=== PATIENT | male | born 1995 | race Caucasian/White ===

== ENCOUNTER 2020-10-21 16:42 | Emergency (ER) | payer OTHER ==
[2020-10-21 17:16] VITALS: BP 151/78; PULSE 90; TEMP 97; BMI 20.9
[2020-10-21] MEDS ORDERED: diphenhydrAMINE HCL 25 MG CAPSULE (FP) PO ONE ×2 (17:57→18:05)
== END 2020-10-21 18:09 | disposition home or self-care (01) ==
LOC: JERFT 16:42
DX: L03.319 Cellulitis of trunk, unspecified (principal)
CPT/HCPCS: 99284-25

== ENCOUNTER 2021-06-29 15:35 | Emergency (ER) | payer OTHER ==
[2021-06-29 16:08] VITALS: BP 139/101; PULSE 86; TEMP 97.8; BMI 46.3
== END 2021-06-29 17:51 | disposition home or self-care (01) ==
LOC: FER 15:35
DX: N50.812 Left testicular pain (principal)
CPT/HCPCS: 76870-TC; 81003; 87086; 99284-25